=== PATIENT | female | born 1970 | race Caucasian/White ===

== ENCOUNTER 2019-12-12 17:55 | Emergency (ER) | payer BC ==
[~2019-12-12] VITALS: Ht 162.6 cm; Wt 70.3 kg
[2019-12-12 17:55] VITALS: BP_SYST 154
[2019-12-12 18:53] LABS: BILIRUBIN,URINE NEGATIVE (NEGATIVE); BLOOD, URINE NEGATIVE (NEGATIVE); CLARITY/URINE CLOUDY (CLEAR); COLOR,URINE YELLOW (YELLOW); GLUCOSE,URINE NEGATIVE (NEGATIVE); KETONES,URINE NEGATIVE (NEGATIVE); LEUKOCYTE ESTERASE ,URINE NEGATIVE (NEGATIVE); NITRITE, URINE NEGATIVE (NEGATIVE); PH,URINE 7.5 (5.0-8.0); PROTEIN URINE NEGATIVE (NEGATIVE)
[2019-12-12 18:57] LABS: HCG,QUAL RESULT NEGATIVE (NEGATIVE)
[2019-12-12 18:59] LABS: BASOPHILS # (AUTO) 0.1 K/uL (0.0-0.2); BASOPHILS % (AUTO) 0.9 % (0.0-2.0); EOSINOPHILS % (AUTO) 0.5 % (0.0-4.0); HEMATOCRIT 45.6 % (36-48); HEMOGLOBIN 15.2 g/dL (12.0-16.0); LYMPHOCYTES # (AUTO) 1.4 K/uL (1.0-5.5); LYMPHOCYTES % (AUTO) 19.9 % (20.5-51.5); MEAN CORPUSCULAR HEMOGLOBIN 30 pg (27-31); MEAN CORPUSCULAR HGB CONC 33 % (32-36); MEAN CORPUSCULAR VOLUME 89 fL (79.0-98.0); MONOCYTES # (AUTO) 0.8 K/uL (0.0-1.0); MONOCYTES % (AUTO) 10.5 % (1.7-9.3); NEUTROPHILS # (AUTO) 4.9 K/uL (1.8-7.7); NEUTROPHILS % (AUTO) 68.2 % (40.0-70.0); PLATELET COUNT (AUTO) 180 K/uL (130-430); RED BLOOD CELL COUNT(AUTO) 5.12 MIL/uL (4.2-6.2); RED CELL DISTRIBUTION WIDTH 14.8 % (9.0-15.0); WHITE BLOOD COUNT (AUTO) 7.1 K/uL (4.8-10.8)
[2019-12-12 19:11] LABS: ALBUMIN 4.1 g/dL (3.4-4.8); CALCIUM 9.4 mg/dL (8.4-11.0); CREATININE 0.77 mg/dL (0.55-1.30); POTASSIUM 3.9 mmol/L (3.5-5.1); TOTAL BILIRUBIN 1.9 mg/dL (0.0-1.0)
[2019-12-12] MEDS: MORPHINE 4 MG/ML INJ. SYRINGE IVP ONE (19:34)
[2019-12-12] MEDS: PANTOPRAZOLE SODIUM 40 MG/VIAL (PROTONIX) IVP ONE (19:39)
[2019-12-12] MEDS: ONDANSETRON HCL 4 MG/2 ML VIAL IVP ONE ×2 (19:40→21:42)
[2019-12-12] MEDS ORDERED: ONDANSETRON HCL 4 MG/2 ML VIAL ONE (19:57)
[2019-12-12 21:36] VITALS: BP_SYST 142
[2019-12-12] MEDS: MORPHINE 2 MG/ML INJ. SYRINGE IVP ONE (21:42)
== END 2019-12-12 21:15 | disposition home or self-care (01) ==
LOC: SED 17:55
DX: K21.9 Gastro-esophageal reflux disease without esophagitis (principal); I10 Essential (primary) hypertension; Z90.49 Acquired absence of other specified parts of digestive tract
CPT/HCPCS: 36415; 74176; 76700; 80053; 81000; 81003; 83690; 84703; 85025; 96374; 96375; 96376; 99285; C9113; J2270 ×2; J2405

== ENCOUNTER 2019-12-14 23:26 | Observation (INO) | payer BC ==
[~2019-12-14] VITALS: Ht 162.6 cm; Wt 69.9 kg
[2019-12-14 23:43] VITALS: BP_SYST 168
--- NOTE | 2019-12-14 23:50 | NUR ---
Patient to ER bed 2 to gown for evaluation. Side rails up.
--- NOTE | 2019-12-14 23:52 | NUR ---
Patient came to ER with family. C/O Epigastric pain x today. Patient states "pain started around 6 PM , took percucet 10 mg, no better, severe pain, no diarrhea or vomitting." A/O,X4,Epigastric pain, pain rate 10/10, radiate to back.
--- NOTE | 2019-12-14 23:56 | NUR ---
ER at bedside examining patient.
[2019-12-15] MEDS ORDERED: KETOROLAC TROMETHAMINE 30 MG VIAL IVP ONE (00:15)
[2019-12-15] MEDS ORDERED: NACL 0.9% 1,000 ML IV ONE (00:30)
[2019-12-15] MEDS ORDERED: ONDANSETRON HCL 4 MG/2 ML VIAL IVP ONE (00:30)
[2019-12-15 00:51] LABS: INR 1.1 (0.8-1.2); PROTHROMBIN TIME 10.8 SECS (9.5-12.5)
[2019-12-15 00:57] LABS: CALCIUM 8.8 mg/dL (8.4-11.0); CREATININE 0.96 mg/dL (0.55-1.30); POTASSIUM 4.2 mmol/L (3.5-5.1)
[2019-12-15 00:58] LABS: ALBUMIN 3.8 g/dL (3.4-4.8); TOTAL BILIRUBIN 1.9 mg/dL (0.0-1.0)
--- NOTE | 2019-12-15 01:31 | NUR ---
Patient transported to radiology via wheelchair, accompanied by RT.
--- NOTE | 2019-12-15 01:37 | NUR ---
Patient came back from CT scan.
--- NOTE | 2019-12-15 02:16 | NUR ---
Dr. Ramon at bedside for treatment plan and given results.
--- NOTE | 2019-12-15 02:45 | NUR ---
Patient resting quietly. No acute distress noted. Vital signs within normal range.
--- NOTE | 2019-12-15 03:24 | NUR ---
Patient resting quietly. No acute distress noted. Vital signs within normal range.
--- NOTE | 2019-12-15 04:55 | NUR ---
Patient resting quietly. No acute distress noted. Vital signs within normal range.
[2019-12-15 05:06] LABS: HEMATOCRIT 43.3 % (36-48); HEMOGLOBIN 14.3 g/dL (12.0-16.0); LYMPHOCYTES % (AUTO) 14.1 % (20.5-51.5); MEAN CORPUSCULAR HEMOGLOBIN 29 pg (27-31); MEAN CORPUSCULAR HGB CONC 33 % (32-36); MEAN CORPUSCULAR VOLUME 89 fL (79.0-98.0); MONOCYTES % (AUTO) 10.3 % (1.7-9.3); NEUTROPHILS % (AUTO) 74.2 % (40.0-70.0); PLATELET COUNT (AUTO) 157 K/uL (130-430); RED BLOOD CELL COUNT(AUTO) 4.85 MIL/uL (4.2-6.2); RED CELL DISTRIBUTION WIDTH 14.6 % (9.0-15.0); WHITE BLOOD COUNT (AUTO) 7.3 K/uL (4.8-10.8)
[2019-12-15 05:07] LABS: BASOPHILS # (AUTO) 0.1 K/uL (0.0-0.2); BASOPHILS % (AUTO) 0.8 % (0.0-2.0); EOSINOPHILS % (AUTO) 0.6 % (0.0-4.0); MONOCYTES # (AUTO) 0.8 K/uL (0.0-1.0); NEUTROPHILS # (AUTO) 5.4 K/uL (1.8-7.7)
--- NOTE | 2019-12-15 06:31 | NUR ---
Patient will be admitted to care of Josh. Admitted to M/S unit. Will go to room 110A. Belongings list completed. Complete and up to date summary report printed. SBAR report to be given at bedside with opportunity for questions.
--- NOTE | 2019-12-15 06:37 | NUR ---
ADMISSION NOTE Received patient from ER via gurney. Patient admitted with diagnosis of Abdominal Pain. Patient is awake, alert, oriented X4. Patient oriented to hospital room, call light, toileting, pain management and safety-teach back done. Personal belongings checked and Belongings List documented. Call light within reach. Safety Precautions in place.
[2019-12-15 06:42] VITALS: BP_SYST 138
--- NOTE | 2019-12-15 07:32 | NUR ---
CONSULTATION PAGED/CALLED Reason for Consultation: [] ABD PAIN Person Who was Notified: [] DR JONES Consulting Physician: [] DR JONES, FORGING OPERATOR FOR DR FUCHS Bridal Gown Fitter Specialty: [] GI Ordering Physician: [] DR GONZALEZ
[2019-12-15] MEDS: D5/0.45 NS 1,000 ML IV SCH ×2 (07:57→18:39)
--- NOTE | 2019-12-15 08:00 | NUR ---
initial notes rec patient awake with hob elevated. ivf on the l ac. no infiltration noted. denies abd pain at this time. resp easy and unlabored. no sob noted. bed to the lowest position and side rails up and locked. call light within reached and knows when to call for assists.
--- NOTE | 2019-12-15 08:08 | NUR ---
CONSULTATION PAGED/CALLED Reason for Consultation: ABDOMINAL PAIN Person Who was Notified: GABRIELE Consulting Physician: AROLDO PARK Panel Monitor Specialty: GASTROENTEROLOGY Ordering Physician: JOSE ALFREDO
[2019-12-15] MEDS ORDERED: ACETAMINOPHEN 325 MG TABLET PO PRN (08:15)
[2019-12-15 08:24] LABS: BILIRUBIN,URINE NEGATIVE (NEGATIVE); BLOOD, URINE NEGATIVE (NEGATIVE); CLARITY/URINE CLEAR (CLEAR); COLOR,URINE YELLOW (YELLOW); GLUCOSE,URINE NEGATIVE (NEGATIVE); KETONES,URINE NEGATIVE (NEGATIVE); LEUKOCYTE ESTERASE ,URINE NEGATIVE (NEGATIVE); NITRITE, URINE NEGATIVE (NEGATIVE); PROTEIN URINE NEGATIVE (NEGATIVE)
--- NOTE | 2019-12-15 09:19 | NUR ---
CONSULTATION PAGED/CALLED Reason for Consultation: OVARIAN CYST Person Who was Notified: GABRIELE Consulting Physician: FLORI Welder Machine Operator Specialty: OBGYN Ordering Physician: JOSE ALFREDO RUBY IS FOOD CRITIC FOR [employer]
--- NOTE | 2019-12-15 10:00 | NUR ---
rounds asleep when rounds made. call light within reach. no sob noted.
[2019-12-15] MEDS ORDERED: HYDROcodone/ACETAMIN 10-325 MG TAB PO PRN (11:15)
[2019-12-15] MEDS ORDERED: NALOXONE HCL 0.4 MG/ML AMP (NARCAN) IVP PRN ×2 (11:15)
[2019-12-15] MEDS ORDERED: HYDROcodone/ACETAMIN 5-325 MG TAB (NORCO/ VICODIN) PO PRN (11:15)
[2019-12-15] MEDS ORDERED: ONDANSETRON HCL 4 MG/2 ML VIAL IVP PRN (11:15)
[2019-12-15] MEDS ORDERED: LORazepam 2 MG/ML VIAL IVP PRN (11:15)
[2019-12-15 11:33] VITALS: BP_SYST 130
--- NOTE | 2019-12-15 11:54 | NUR ---
rounds seen by dr menard and with orders. no osb noted.
[2019-12-15 15:21] VITALS: BP_SYST 136
--- NOTE | 2019-12-15 18:30 | NUR ---
closing notes dr koenig at bedside and did a pelvic exam on the patient. denies pain at this time but requested for anxiety med. no sob noted. call light within reached. bed to the lowest positon and side rails up and locked.
[2019-12-15 19:00] VITALS: BP_SYST 155
--- NOTE | 2019-12-15 19:15 | NUR ---
change of shift.pt.presents quiescent affect;calm,restimg.pt.had recently received the administration ativan;no c/o pain,nausea. iv access intact;patent.iv fluids infusing.pt.capable to reposition self.dinner tray@bedside.pt's diet status converts to clear liquids @midnight.pt to submit to [facility] in am;12/16/19.call light/telephone w/in reach of the pt.
[2019-12-15 20:00] VITALS: BP_SYST 155
--- NOTE | 2019-12-15 20:00 | NUR ---
pt.assessed.v/s assessed values w/in normal limits.no c/o pain,nausea.pt.refused the dinner tray.i have removed the tray. i have apprised the pt.that i may provide snacks/beverages w/in the clear liquids diet parameters until midnight.no requets posited@this hour.iv access intact;patent iv fluids infusing.pt.capable to reposition self/ambulate.general status stable. respiratory status stable;unlabored@room air.call light/telephone w/in reach of the pt.
--- NOTE | 2019-12-15 22:00 | NUR ---
pt.assessed.pt.presents quiescent affect;calm,somnolent.iv access intact;patent iv fluids infusing.pt.capable to reposition self. per flacc pain mgx pt.absent facial grimaces/body posturing.call light/telphone w/in reach of the pt.
[2019-12-16] VITALS: BP_SYST 150
--- NOTE | 2019-12-16 | NUR ---
pt.assessed.v/s assessed values w/in normal limits.no c/o pain,nausea.iv access intact;patent iv fluids infusing.re-iterated to the pt.that the diet status has converted to npo status 2/t [facility] in am:12/16/19.pt.capable to reposition self.general status stable;respiratory status stable;unlabored call light/telephone w/in reach of the pt.
[2019-12-16] MEDS: D5/0.45 NS 1,000 ML IV SCH ×2 (01:52→02:49)
--- NOTE | 2019-12-16 02:00 | NUR ---
pt.assessed.pt.presents quiescent affect;calm,somnolent.per flacc pain mgx pt.absent facial grimaces/body posturing.iv access intact;patent iv fluids infusing.pt.capable to reposition self.call light/telephone w/in reach of the pt.
--- NOTE | 2019-12-16 04:00 | NUR ---
pt.assessed.pt.presents quiescent affect;calm,somnolent.iv access intact;patent iv fluids infusing.general status stable.respiratory status stable;unlabored.pt.capable to reposition self.per flacc pain mgx pt.absent facial grimaces/body posturing/call light/telephone w/in access of the pt.
--- NOTE | 2019-12-16 06:06 | NUR ---
pt.assessed.pt.presents quiescent affect;calm,somnolent.per flacc pain mgx pt.absent facial grimaces/body posturing.iv access intact;patent iv fluids infusing.pt.capable to reposition self.general status stable.respiratory status stable;unlabored.call light/ telephone placed w/in access of the pt.
[2019-12-16 07:12] LABS: BASOPHILS # (AUTO) 0.1 K/uL (0.0-0.2); BASOPHILS % (AUTO) 1.1 % (0.0-2.0); EOSINOPHILS # (AUTO) 0.1 K/uL (0.0-0.4); EOSINOPHILS % (AUTO) 1.3 % (0.0-4.0); HEMATOCRIT 42.6 % (36-48); HEMOGLOBIN 14.3 g/dL (12.0-16.0); LYMPHOCYTES # (AUTO) 1.2 K/uL (1.0-5.5); LYMPHOCYTES % (AUTO) 19.8 % (20.5-51.5); MEAN CORPUSCULAR HEMOGLOBIN 30 pg (27-31); MEAN CORPUSCULAR HGB CONC 34 % (32-36); MEAN CORPUSCULAR VOLUME 89 fL (79.0-98.0); MONOCYTES # (AUTO) 0.5 K/uL (0.0-1.0); MONOCYTES % (AUTO) 8.8 % (1.7-9.3); NEUTROPHILS # (AUTO) 4.3 K/uL (1.8-7.7); PLATELET COUNT (AUTO) 144 K/uL (130-430); RED CELL DISTRIBUTION WIDTH 14.6 % (9.0-15.0); WHITE BLOOD COUNT (AUTO) 6.2 K/uL (4.8-10.8)
[2019-12-16 07:29] LABS: ALBUMIN 3.2 g/dL (3.4-4.8); CALCIUM 8.3 mg/dL (8.4-11.0); CREATININE 0.64 mg/dL (0.55-1.30); POTASSIUM 3.7 mmol/L (3.5-5.1); TOTAL BILIRUBIN 1.5 mg/dL (0.0-1.0)
[2019-12-16 08:00] VITALS: BP_SYST 152
--- NOTE | 2019-12-16 08:00 | NUR ---
Opening note Patietn sleeping in bed on RA breathing even and unlabored no SOB noted. Patient aroused to name, no c/o of discomfort. IV infusing LAC #20 breathing D5 1/2 at 100ml/hr. Patient informed of MRCP today and is NPO at this time and aware. Bed in low. call light in reach, side rails up for safety. Will continue to monitor.
--- NOTE | 2019-12-16 10:15 | NUR ---
closing note Provided report to nurse assuming care. Patient resting in bed, on room air no SOB noted. IV infusing left a/c #20 D5 1/2 at 100ml/hr. Bed in low, call light in reach, side rails up for safety. Will endorse to next nurse.
--- NOTE | 2019-12-16 10:15 | NUR ---
ASSUME CARE: TRANSFER CARE BY LIZZY TO ME.PATIENT LYING ON THE BED,AWAKE,ALERT AND ORIENTED X4.MAINTAINED NOTHING BY MOUTH.PATIENT FOR MRCP TODAY. CALL LIGHT WITH IN REACH. BED LOCKED AT LOWEST POSITION. STABLE.
--- NOTE | 2019-12-16 11:10 | NUR ---
MRCP: TILE CONDUIT LAYER BY TECH ,PATIENT TO MRI VIA WHEELCHAIR IN STABLE CONDITION. PUT IV TO SALINE LOCK.
[2019-12-16 12:00] VITALS: BP_SYST 165
--- NOTE | 2019-12-16 12:10 | NUR ---
BACK TO ROOM: PATIENT BACK TO HER ROOM AFTER MRCP VIA WHEELCHAIR. STABLE.
--- NOTE | 2019-12-16 14:30 | NUR ---
RN ROUNDS: PATIENT RESTING. DENIES ANY PAIN. UPDATE ON HER DIET GIVEN,ADVANCE TO [facility] SOFT DIET ORDERED FOR DINNER.
[2019-12-16 16:00] VITALS: BP_SYST 158
--- NOTE | 2019-12-16 18:26 | NUR ---
PAGED I PAGED DR. GONZALEZ I SPOKE WITH JENA BIRCH
--- NOTE | 2019-12-16 18:50 | NUR ---
DC ORDER: SPOKE WITH DR GONZALEZ ,E-SCRIPT PRESCRIPTION ORDERED AND MRCP RESULTS NORMAL,NO STONE AND INFORMED THE PATIENT PER MD.
[2019-12-16] MEDS ORDERED: OMEP20TA20 PO (18:57)
--- NOTE | 2019-12-16 19:09 | NUR ---
PAGED I PAGED DR. GONZALEZ I SPOKE WITH MERVIN EXCHANGE
--- NOTE | 2019-12-16 19:15 | NUR ---
BP ELEVATED: SPOKE WITH DR GONZALEZ AND INFORMED HIM PATIENT'S KO=923/104,GIVE CLONIDINE 0.1MG PO ONCE. ENDORSED TO NIGHT NURSE LAWRENCE.PATIENT IN STABLE CONDITION.
[2019-12-16 19:42] VITALS: BP_SYST 166
[2019-12-16] MEDS ORDERED: cloNIDine HCL 0.1 MG TABLET PO ONE (19:45)
[2019-12-17 06:06] LABS: HEPATITIS A AB, IgM Negative (Negative); HEPATITIS B CORE AB, IgM Negative (Negative); HEPATITIS B SURFACE AG Negative (Negative)
[2019-12-18 10:19] LABS: ANTI-SMOOTH MUSCLE AB 14 Units (0-19)
[2019-12-19 16:06] LABS: ANTI NUCLEAR AB WITH REFLEX Negative (Negative)
== END 2019-12-16 20:47 | disposition home or self-care (01) ==
LOC: SED 23:26 → SMU 12-15 05:52 → INTOOBSV 12-15 05:52 → SMU 12-15 06:31
PROVIDERS: ADMIT Internal Medicine Hospice and Palliative Medicine; ATTEND Internal Medicine Hospice and Palliative Medicine
DX: N83.8 Other noninflammatory disorders of ovary, fallopian tube and broad ligament (principal); N83.209 Unspecified ovarian cyst, unspecified side; K80.20 Calculus of gallbladder without cholecystitis without obstruction; K85.90 Acute pancreatitis without necrosis or infection, unspecified; R74.0 Nonspecific elevation of levels of transaminase and lactic acid dehydrogenase [LDH]; I10 Essential (primary) hypertension; E80.7 Disorder of bilirubin metabolism, unspecified; E80.6 Other disorders of bilirubin metabolism; R73.9 Hyperglycemia, unspecified; R17 Unspecified jaundice; R94.5 Abnormal results of liver function studies; K21.9 Gastro-esophageal reflux disease without esophagitis; Z98.51 Tubal ligation status; Z90.49 Acquired absence of other specified parts of digestive tract; Z79.899 Other long term (current) drug therapy
CPT/HCPCS: 36415 ×2; 74176; 74181; 76700; 76856; 80053 ×2; 80074; 81003; 82150; 83516 ×2; 83690 ×2; 83735; 84100; 84484; 85025 ×2; 85610; 86038; 86304; 93005; 96361 ×3; 96374; 96375; 99285; G0378; J1885; J2060; J2405